=== PATIENT | female | born 1985 | race Caucasian/White ===

== ENCOUNTER 2023-08-16 18:45 | Emergency (ER) | payer SELFPAY ==
[2023-08-16 18:52] VITALS: BP 118/86; PULSE 84; RESP 20; TEMP 37.3; O2SAT 99
[2023-08-16 19:04] LABS: EDUAAPPEAR Cloudy; EDUABILI Negative; EDUABLOOD 2+; EDUACOLOR1 Yellow; EDUAGLUCOSE Negative; EDUAKETONE Negative; EDUALEUKO 1+; EDUANITRATE Positive; EDUAPROTEIN 2+; EDUAUROBILI 0.2
--- NOTE | 2023-08-16 19:50 | ED.FEMALEGU ---
HPI - Female Genitourinary General Chief complaint: Urogenital-Female Stated complaint: Bladder/back pain Time Seen by Provider: 08/16/23 19:42 Source: patient and RN notes reviewed Mode of arrival: ambulatory Limitations: no limitations History of Present Illness HPI Narrative: Patient presents today with a 3 day history of suprapubic pain and right flank pain that started today. She also has some mild nausea. Denies vomiting, fever, or any additional urinary symptoms. Currently rates her pain 9/10 and has tried no [id number] treatment prior to arrival. Related Data Allergies Allergy/AdvReac Type Severity Reaction Status Date / Time Penicillins Allergy Intermediate Rash Verified 08/16/23 18:55 cephalexin Allergy Unknown RASH, Verified 08/16/23 18:55 RESPIR. DISTRESS Review of Systems Review of Systems: CONSTITUTIONAL: Denies body aches, fever, chills, or sweats. EYES: Denies visual changes, redness, or discharge. ENT: Denies rhinorrhea, congestion, sore throat, or otalgia. CARDIOVASCULAR: Denies chest pain, palpitations, or edema. RESPIRATORY: Denies cough or dyspnea. GASTROINTESTINAL: Denies vomiting, or diarrhea.+ abdominal pain, nausea, flank pain GENITOURINARY: Denies dysuria or hematuria. SKIN: Denies rash, itching, or wounds. MUSCULOSKELETAL: Denies back pain, joint pain, or myalgia. NEUROLOGIC: Denies headache, numbness, tingling, or weakness. PSYCH: Denies depression or anxiety. PMFSH Comments At time of signature, I have reviewed and agree with nursing past medical, surgical, social and family history unless otherwise noted. Please see nursing chart for further information. There is no relevant family history pertinent to the presenting complaint Exam Narrative: GENERAL: Mildly ill-appearing, well-nourished, and in moderate pain distress. HEAD: Normocephalic, atraumatic. EYES: EOMI. No redness or drainage. Conjunctivae normal. ENT: Mucous membranes pink and moist. NECK: Normal AROM. CHEST: No respiratory distress. Clear to auscultation. HEART: Regular rate and rhythm. No murmur appreciated. Normal peripheral pulses. ABDOMEN: Soft, nondistended, normal active bowel sounds. Suprapubic tenderness, right lower quadrant tenderness. -CVAT EXTREMITIES: Normal range of motion. No edema. SKIN: Warm, dry, no rash. Capillary refill normal. Normal skin turgor. NEURO: No focal deficits. Alert and oriented x3. Gait steady. PSYCH: Normal affect. No signs of depression or anxiety. Course Course Level of Care: Express Care Visit Vital Signs Vital signs: Vital Signs Temperature 99.2 F 08/16/23 18:52 Pulse Rate 84 08/16/23 18:52 Respiratory Rate 20 08/16/23 18:52 Blood Pressure 118/86 08/16/23 18:52 Pulse Oximetry 99 08/16/23 18:52 Oxygen Delivery Room Air 08/16/23 18:52 Temperature 99.3 F 08/16/23 19:28 Pulse Rate 95 08/16/23 19:28 Respiratory Rate 16 08/16/23 19:28 Blood Pressure 114/72 08/16/23 19:28 Pulse Oximetry 100 08/16/23 19:28 Oxygen Delivery Room Air 08/16/23 19:28 Reviewed MDM - Female Genitourinary MDM Narrative Medical decision making narrative: UA is consistent with urinary tract infection. Patient's flank pain suggests pyelonephritis or ureteral stone. Recommend ER transfer for further evaluation. Patient refuses ER transfer. Will sign out AMA after benefit/risk discussion. Will treat UTI with Cipro. Patient states she will go to the ER if symptoms worsen. Differential Diagnosis Differential diagnosis: Likely urinary tract infection, vaginitis, cystitis and other (Ureteral stone, pyelonephritis) Lab Data Attestation: I reviewed the patient's lab results. Labs: Lab Results 08/16/23 Range/Units 18:56 POC Urine Color Yellow POC Urine Clarity Cloudy POC Urine pH 6.0 POC Ur Specif [place] 1.020 POC Urine Protein 2+ POC Ur Glucose (UA) Negative POC Urine Ketones Negative POC
== END 2023-08-16 20:03 | disposition left against medical advice (07) ==
PROVIDERS: Emergency Provider Nurse Practitioner
DX: N30.01 Acute cystitis with hematuria (principal); B96.20 Unspecified Escherichia coli [E. coli] as the cause of diseases classified elsewhere
CPT/HCPCS: 81003; 87077; 87086; 87186; 99203; G0463

== ENCOUNTER 2024-05-15 16:20 | Emergency (ER) | payer SELFPAY ==
--- OUTSIDE RECORDS SUMMARY | 2024-05-15 16:23 | XMS_ITS | Referral Summary ---
Author Organization [facility] Address [address] [place] [address] Care Team Providers Care Communications Tech Name Role Phone Rufus Camacho MD Primary Care Provider [phone]- [phone] Sukumar Brizuela MD Unavailable Allergies Active Allergy Reactions Criticality Noted Date Comments Cephalexin Rash,Swelling Medium 02/29/2016 Penicillins Rash,Swelling Medium 02/29/2016 Sulfa (Sulfonamide Antibiotics) Hives Medium 06/05 Medications venlafaxine XR (EFFEXOR-XR) 75 mg 24 hr capsule Take 75 mg by mouth daily Active albuterol HFA (PROVENTIL HFA,VENTOLIN HFA,PROAIR HFA) 90 mcg/actuation inhaler Inhale 2 puffs every 4 (four) hours as needed Active Adderall XR 30 mg 24 hr capsule Take 30 mg by mouth daily 2 Active cariprazine (Vraylar) 1.5 mg capsule Take 1 capsule by mouth daily Haven't taken within the last month Active HYDROcodone-randell taminophen (NORCO) 5-325 mg per tablet hydrocodone 5 mg-acetaminophen 325 mg tablet TAKE 1 TABLET BY MOUTH EVERY 6 HOURS Active norgestimate-et hinyl estradioL (ORTHO-CYCLEN) 0.25-35 mg-mcg per tablet Take 1 tablet by mouth daily 28 tablet 14 2 Active traMADoL (ULTRAM) 50 mg tablet Take 1 tablet (50 mg total) by mouth every 6 (six) hours for 8 doses 8 tablet 4 Active Active Problems Problem Noted Date Diagnosed Date Lactic acidosis 06/24/2021 Assessment & Plan (06/24/2021 1:58 AM CDT): Patient receiving fluids. Will repeat. Nicotine dependence with current use 06/24/2021 Assessment & Plan (06/24/2021 1:58 AM CDT): Continue with nicotine patch Mild malnutrition 06/24/2021 Depression 06/23/2021 Bipolar 1 disorder 06/23/2021 Assessment & Plan (06/24/2021 1:58 AM CDT): Continue Effexor Anxiety 06/23/2021 Substance abuse 06/23/2021 Assessment & Plan (06/24/2021 1:57 AM CDT): History of opiate abuse. Patient denies ever having history of heroin abuse or IV drug use. Her drug of choice were Vicodin and Percocet. Pneumonia of right lower lobe due to infectious organism 06/23/2021 Assessment & Plan (06/24/2021 2:08 AM CDT): With intraparenchymal abscess. Patient has been seen by pulmonology. Continue Vanco and ertapenem. P.r.n. pain control. Given patient's history of opioid abuse, will attempt to avoid opioids. She is currently breathing comfortably on room air. History of gestational diabetes 03/12/2012 Abscess of lower lobe of right lung with pneumon ia Immunizations Immunization Administration Dates Next Due Influenza, Split 11/07/2011 Influenza, Trivalent, Preservative Free, Intramu scular 02/05/2011 Social History Tobacco Use Types Packs/Day Years Used Date Smoking Tobacco: Every Day Cigarettes Vaping Smokeless Tobacco: Never Tobacco Cessation:Ready to Q uit: Not Asked; Counseling Given: Not Answered Alcohol Use Standard Drinks/Week Comments Not Currently 0 (1 standard drink = 0.6 oz pur e alcohol) AUDIT-C Answer Date Recorded Q1: How often do you have a drink containing alc ohol? Monthly or less 06/23/2021 Q2: How many drinks containi ng alcohol do you have on a typical day when you are drinking? 1 or 2 06/23/2021 Q3: How often do you have si x or more drinks on one occasion? Never 06/23/2021 Personal Safety Answer Date Recorded Have you ever been in or are you currently in a harmful physical or emotional relationship or is someone making you feel afraid or unsafe? 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 Gender Identity Not on file Sexual Orientation Not on file Occupation Industry Job Start Date Job End Date Not on file Not on file Not on file Not on file Last Filed Vital Signs Vital Sign Reading Time Taken Comments Blood Pressure 156/91 03/06/2023 6:53 PM INDEPENDENT CROP CONSULTANT Pulse 114 03/06/2023 6:56 PM INDEPENDENT CROP CONSULTANT Temperature 36.6 C (97.8 F) 03/06/2023 6:53 PM INDEPENDENT CROP CONSULTANT Respiratory Rate 16 03/06/2023 6:53 PM INDEPENDENT CROP CONSULTANT Oxygen Saturation 100% 03/06/2023 6:53 PM INDEPENDENT CROP CONSULTANT Inhaled Oxygen Concentration - - Weight 58.5 kg (129 lb) 03/06/2023 6:53 PM INDEPENDENT CROP CONSULTANT Height 160 cm (5' 3 ) 07/12/2021 9:57 AM CDT Body Mass Index 22.85 07/12/2021 9:57 AM CDT Plan of Treatment Not on file Procedures Procedure Name Priority Date/Time Associated Diagnosis Comments PAP AND HIGH RISK HPV, REFLEX TO GENOTYPING Routine 07/08/2021 10:48 AM CDT Screening for malignant neoplasm of the cervix from Last 3 Months or Most Recently Relevant to Health Maintenance Results * Pap and High Risk HPV, reflex to Genotyping (07/08/2021 10:48 AM CDT) Thin prep (Pap test) 07/08/2021 10:48 AM CDT 07/11/2021 10:48 AM CDT Narrative PATHOLOGY [facility] - 07/13/2021 9:59 AM CDT [facility] Department of Pathology [address] [place], [place] [id number] Final Report with Addendum Note to Patients: This report may contain a detailed description of human tissue sent by a health care provider to the laboratory for pathologic evaluation. The content of this report is essential for diagnosis and may provide important critical findings. This information may be unfamiliar to patients to review without a medical professional present. It is advised that the patient review this report in the presence of a health care provider who can answer questions and explain the details. Patient Name: ROSY EVANS Address: [address] [place] [address] Gender: F : 1985 (Age: 35) Service: Laboratory Location: Lab [facility] #: [id number] Patient Type: Ref Lab Taken: 07/08/2021 Received: 07/11/2021 Accessioned:: 07/12/2021 Reported: 07/13/2021 Physician(s): MD Hien Sewell MD Diagnosis: Source of Specimen: SCREENING THIN PREP IMAGED PAP w/ HPV Specimen Adequacy: - Specimen satisfactory for interpretation; endocervical/transformation zone component absent or insufficient General Category: - Negative for intraepithelial lesion or malignancy NADYA Galvan(ASCP) Report Electronically Reviewed and Signed Out By ESTEFANIA GalvanASCP) 07/13/2021 09:59:58 Addenda: HPV Test Interpretation NEGATIVE for types 16, 18, 31, 33, 35, 39, 45, 51, 52, 56, 58, 59, 66 and 68. Test performed utilizing Gen-Probe Aptima assay. NADYA Mcmahon(ASCP) Report Electronically Reviewed and Signed Out By ESTEFANIA McmahonASCP) 07/13/2021 10:10:38 Specimen(s) Received: A: SCREENING THIN PREP IMAGED PAP w/ HPV Clinical History: The Pap test is a screening test used to aid in the detection of cervical cancer and its precursors. It should not be the sole means by which malignant and premalignant lesions are diagnosed. Both false negative and false positive results may occur. It also has poor sensitivity for the detection of endometrial lesions and should not be used to evaluate suspected endometrial abnormalities. For these reasons it is most important to obtain Pap tests at regular intervals. The performance characteristics of some immunohistochemical stains, fluorescence in-situ hybridization tests and immunophenotyping by flow cytometry cited in this report (if any) were determined by the Surgical Pathology Department at [facility] as part of an ongoing quality control representative program and in compliance with federally mandated regulations drawn from the Clinical Laboratory Improvement Act of 1988 (CLIA '88). Some of these tests rely on the use of analyte specific reagents and are subject to specific labeling requirements by the US Food and Drug Administration. Such diagnostic tests may only be performed in a facility that is certified by the Department of Health and Human Services as a high complexity laboratory under CLIA '88. The FDA has determined that such clearance or approval is not necessary. This test is used for clinical purposes. It should not be regarded as investigational or for research. Nevertheless, federal rules concerning the medical use of analyte specific reagents require that the following disclaimer be attached to the report: This test was developed and its performance characteristics determined by the Surgical Pathology Department [facility]. It has not been cleared or approved by the U. S. Food and Drug Administration. Hien Kurtz MD LAB CYTOLOGY ORDERABL ES Final Result Performing Organization Address City/State/[facility] Co de Phone Number PATHOLOGY [address] [place] [address] from Last 3 Months or Most Recently Relevant to Health Maintenance Insurance ACCESS CHOICE ANTHEM ACCESS CHOICE Advance Directives For more information, please contact: [phone] * Full Code (Latest Code Status on File) Date Activated Date Inactivated Comments 06/23/2021 3:30 PM 06/25/2021 9:28 PM Care Teams Communications Tech Relationship Specialty Start Date End Date Rufus Camacho MD [facility] [place] [address] PCP - General 06/23/21 Sukumar Brizuela MD [facility] [place] [address] Consulting Physician Pulmonary Disease 06/25/21
--- OUTSIDE RECORDS SUMMARY | 2024-05-15 16:23 | XMS_ITS | Clinical Summary ---
Author Organization [facility] Address [address] [place] [address] Care Team Providers Care Galley Hand Name Role Phone Rufus Camacho MD Primary Care Provider +1- [phone] Sukumar Brizuela MD Unavailable Allergies Active Allergy [...] Influenza, Trivalent, Preservative Free, Intramu scular 02/05/2011 Surgical History Surgery Date Site/Laterality Comments INGUINAL HERNIA REPAIR Inguinal Hernia Repair - at 10 yrs old (Added by TW Conv) SECTION 02/06/2012 - 02/04/2013 DILATION AND CURETTAGE OF UTERUS 02/05/2007 - 02/05/2008 Partial molar DILATION AND CURETTAGE OF UTERUS Missed Medical History Medical History Date Comments Hx Other Medical 2007 ; Comm ents: molar ----partial--followed betas to zero. D&C; Outcome: Unknown sex Hx Other Medical 2009 ; Comm ents: medical management with cytotect.; Outcome: 8 week Unknown sex Asthma Recurrent loss Abnormal Pap smear of cervix 2012 LSI L. ECC - negative. Family History Medical History Relation Name Comments Melanoma Cousin Diabetes type II Father Diabetes type II Maternal Grandfather Mosca's disease Maternal Grandmother Diabetes type II Maternal Grandmother Heart disease Maternal Grandmother Rheum arthritis Maternal Grandmother Thyroid disease Other 1 Thyroid Diso rder - grandmother and younger sister (Added by TW Conv) Diabetes type II Other 2 Type 2 Diab etes Mellitus - grandparents on both sides of her family (Added by TW Conv) Hypertension Other 3 Hypertension - (Added by TW Conv) Diabetes type II Paternal Grandfather Diabetes type II Paternal Grandmother Relation Name Status Comments Cousin Father Maternal Grandfather Maternal Grandmother Other 1 Other 2 Other 3 Paternal Grandfather Paternal Grandmother Social History Tobacco Use Types Packs/Day Years [...] on file Legal Sex Female 11:54 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 Arrest of 1st stage of labor. 1' LTCS. 3 more 1st TM miscarriages after delivery, one with D&C. Last Filed Vital Signs Vital Sign Reading Time Taken Comments Blood Pressure 156/91 03/06/2023 6:53 PM MEDIA/INSTRUCTIONAL DESIGNER Pulse 114 03/06/2023 6:56 PM MEDIA/INSTRUCTIONAL DESIGNER Temperature 36.6 C (97.8 F) 03/06/2023 6:53 PM MEDIA/INSTRUCTIONAL DESIGNER Respiratory Rate 16 03/06/2023 6:53 PM MEDIA/INSTRUCTIONAL DESIGNER Oxygen Saturation 100% 03/06/2023 6:53 PM MEDIA/INSTRUCTIONAL DESIGNER Inhaled Oxygen Concentration - - Weight 58.5 kg (129 lb) 03/06/2023 6:53 PM MEDIA/INSTRUCTIONAL DESIGNER Height 160 cm (5' 3 ) 07/12/2021 9:57 AM CDT Body Mass Index 22.85 07/12/2021 9:57 AM CDT Plan of Treatment Health Maintenance Due Date Last Done Comments Depression Screening 1985 Hepatitis C Screening 1985 DTaP/Tdap/Td Vaccine (1 - Tdap) 1996 Varicella Vaccines (1 of 2 - 13+ 2-dose series) 1998 Hepatitis B Screening 12/14/2003 Pneumococcal vaccine <65 (1 of 2 - PCV) 2004 Cervical Cancer Screening 07/08/2022 07/08/2021 Regular Well Visit/Exam 18-64 07/08/2022 07/08/2021 Covid-19 Vaccine (3 - 2023-2 5 season) 2023 11/03/2020, 10/05/2020 Influenza Vaccine (Season Ended) 2024 12/03/2014, 11/07/2011, 02/05/2011 HPV Vaccines Aged Out No longer eligi ble based on patient's age to complete this topic Procedures Procedure Name Priority Date/Time Associated Diagnosis [...] 9:59 AM CDT [facility] Department of Pathology [address] [place], [place] [id number] Final Report with Addendum Note to Patients: [...] the details. Patient Name: ROSY EVANS Address: [address] [place] [address] Gender: F : 1985 (Age: 35) Service: Laboratory Location: Lab [facility] #: [id number] Patient Type: Ref Lab Taken: 07/08/2021 Received: 07/11/2021 Accessioned:: 07/12/2021 Reported: 07/13/2021 Physician(s): MD Hine Sewell MD Diagnosis: Source of Specimen: SCREENING THIN PREP IMAGED PAP w/ HPV Specimen Adequacy: - Specimen satisfactory for interpretation; endocervical/transformation zone component absent or insufficient General Category: - Negative for intraepithelial lesion or malignancy NADYA Galvan(ASCP) Report Electronically Reviewed and Signed Out By NADYA Galvan(ASCP) 07/13/2021 09:59:58 Addenda: HPV Test Interpretation NEGATIVE [...] determined by the Surgical Pathology Department at [facility] as part of an ongoing quality assurance technician program and in compliance with federally mandated [...] characteristics determined by the Surgical Pathology Department [facility]. It has not been cleared or approved by the U. S. Food and Drug Administration. Hien Kurtz MD LAB CYTOLOGY ORDERABL ES Final Result PATHOLOGY [address] [place] [address] from Last 3 Months or Most Recently Relevant to Health Maintenance Insurance [facility] ACCESS CHOICE ANTHEM ACCESS CHOICE Advance Directives For more information, please contact: [phone] * Full Code (Latest Code Status on File) Date Activated Date Inactivated Comments 06/23/2021 3:30 PM 06/25/2021 9:28 PM Care Teams Galley Hand Relationship Specialty Start Date End Date Rufus Camacho MD [address] [place] [address] [place] [address] PCP - General 06/23/21 Sukumar Brizuela MD [address] [place] [address] [place] [address] Consulting Physician Pulmonary Disease 06/25/21
[2024-05-15 16:38] VITALS: BP 114/74; PULSE 86; RESP 20; TEMP 36.9; O2SAT 98
--- NOTE | 2024-05-15 17:07 | ED.URI ---
HPI - URI/Sore Throat General Chief Complaint: Upper Respiratory Infection Stated Complaint: ear and throat pain Time Seen by Provider: 05/15/24 16:48 Source: patient, RN notes reviewed and old records reviewed Mode of arrival: ambulatory Limitations: no limitations History of Present Illness HPI Narrative: 38 year old female who presents to [facility] care with complaints of sinus congestion and drainage for one week duration and yesterday started with right ear pain and some dizziness. Patient reports no drainage from her right ear or any tinnitius or decreased hearing. Patient reports that she has been taking Claritin and Benadryl for her symptoms. Patient reports no known fevers, chills or sweats, denies any body aches. MD elicited complaint: rhinorrhea, nasal congestion and other (ear pain) Onset (ago): week(s) (one week of sinus congestion and drainage 2 days of right ear pain and some dizziness) Pain scale (0-10): 5 Description of mucous: clear Able to tolerate fluids by mouth: Yes Treatments prior to arrival: other (Claritin and Benadryl) Related Data Allergies Allergy/AdvReac Type Severity Reaction Status Date / Time Penicillins Allergy Intermediate Rash Verified 05/15/24 16:49 cephalexin Allergy Unknown RASH, Verified 05/15/24 16:49 RESPIR. DISTRESS Review of Systems Review of Systems: CONSTITUTIONAL: Denies malaise, chills, sweats, or fever. EYES: Denies visual changes, redness, or discharge. ENT: Reports rhinorrhea, congestion, sinus pain, right otalgia and no sore throat. CARDIOVASCULAR: Denies chest pain, palpitations, or edema. RESPIRATORY: Reports no cough.? Denies dyspnea. GASTROINTESTINAL: Denies abdominal pain, nausea, vomiting, diarrhea SKIN: Denies rash or itching. MUSCULOSKELETAL: Denies myalgia. NEUROLOGIC: Denies headache.states some intermittent dizziness All systems reviewed & are unremarkable except as noted in HPI and below PMFSH Past Medical History Medical History (Updated 05/16/24 @ 14:49 by Dena Sanchez NP) Gestational diabetes Right hand fracture Wrist fracture, right Interstitial cystitis Surgical History Surgical History (Updated 05/16/24 @ 14:46 by Dena Sanchez NP) H/O dilation and curettage x2 H/O hernia repair Previous section Social History Social History (Updated 05/16/24 @ 14:47 by Dena Sanchez NP) Smoking packs per day: 0.5 Smoking cigarettes per day: 10.0 Smoking status: Current every day smoker Tobacco type: cigarettes Alcohol intake: current Alcohol use details: social Substance use type: does not use Living arrangements: with family Gender identity (if verbalized by the patient): Female Comments At time of signature, agree with nursing past medical, surgical, social and family history. There is no relevant family history pertinent to the presenting complaint Exam Narrative: GENERAL: Well-appearing, well-nourished, and in no acute distress. HEAD: Normocephalic EYES: PERRLA, conjunctivae clear ENT: Nares clear, turbinates edematous and erythematous, clear discharge. Mucous membranes moist.Right TM red and bulging, Left TM pearly roy with dull light reflex; no tragal tenderness. Oropharynx erythematous without lesions. Tonsils not enlarged and without exudate, no drooling, no hoarseness, no trismus, uvula midline.post nasal drainage NECK: Supple. No lymphadenopathy CHEST: Clear to auscultation, breath sounds equal. No wheezing, rhonchi, rales, or stridor. No respiratory distress, speaks in full sentences.no cough noted SAO2 98% on room air HEART: Regular rate and rhythm. No murmur heard. SKIN: Warm, dry, no rash. NEURO: Alert and oriented x3. PSYCH: Normal mood and affect Course Course Emergency Course: Patient is aware of diagnosis, understands and agrees to treatment plan.? Anticipatory guidance given.? Patient agrees to follow-up as directed and is aware of reasons to seek care at the emergency department. Portions of this record may have been created with voice recognition software Level of Care: Express Care Visit Vital Signs Vital signs: Vital Signs Temperature 36.9 C 05/15/24 16:38 Pulse Rate 86 05/15/24 16:38 Respiratory Rate 20 05/15/24 16:38 Blood Pressure 114/74 05/15/24 16:38 Pulse Oximetry 98 05/15/24 16:38 Oxygen Delivery Room Air 05/15/24 16:38 Temperature 36.9 C 05/15/24 16:38 Pulse Rate 86 05/15/24 16:38 Respiratory Rate 20 05/15/24 16:38 Blood Pressure 114/74 04/10/25 16:38 Pulse Oximetry 98 05/15/24 16:38 Oxygen Delivery Room Air 05/15/24 16:38 Reviewed MDM - URI/Sore Throat MDM Narrative Medical decision making narrative: Differential diagnosis considered: Dawson virus, strep pharyngitis, allergic rhinitis, upper respiratory tract infection, sinusitis, rhinosinusitis, nasopharyngitis. viral pharyngitis, otitis media, otitis externa, pneumonia, bronchitis, viral cough syndrome, viral syndrome, and influenza.? Exam findings show no acute concerns or changes; patient is non-toxic appearing and is in no distress.? Patient is appropriate for outpatient treatment and follow-up. Differential Diagnosis Differential diagnosis: Likely upper respiratory infection, otitis media, sinusitis, viral infection and other (rhinitis) Lab Data Attestation: I reviewed the patient's lab results. Critical Care Time Critical Care Time Critical Care Time: No Discharge Plan Discharge Clinical Impression: Otitis media Qualifiers: Otitis media type: serous Chronicity: acute Laterality: right Recurrence: non-recurrent Qualified Code(s): H65.01 - Acute serous otitis media, right ear Upper respiratory infection Qualifiers: URI type: unspecified URI Qualified Code(s): J06.9 - Acute upper respiratory infection, unspecified Patient Disposition: Home Condition: Stable Instructions: Antibiotic Form, Pharyngitis (ED), Ear Infection (GEN) Additional Instructions: Increase fluids especially juices and water Tvof-hcy-ynimcya cough and cold medicine of your choice for your symptoms Zyrtec Claritin or Josefa daily may include plain Sudafed daily Tylenol or ibuprofen for any fever pain heat to the face 20-30 minutes 4-6 times a day for pain Salt water gargles, throat lozenges or throat sprays as desired Antibiotic as directed--finished the medication If your symptoms persist, change or worsen significantly before you can contact your personal physician then please, without delay, go to the emergency department for further evaluation. Follow-up with PCP in 7-10 days or sooner if needed Patient Language: Setswana Prescriptions: New cefdinir 300 mg capsule 300 mg PO Q12H Qty: 14 0RF Follow-up/Referrals: UNKNOWN,DOCTOR [Primary Care Provider] - Time of Disposition: 17:15 Quality Janell Coma Scale Eyes: Open Verbal: Oriented and Alert Motor: Follows Commands Janell Coma Total Score: 15
== END 2024-05-15 17:22 | disposition home or self-care (01) ==
PROVIDERS: Emergency Provider Registered Nurse
DX: H65.01 Acute serous otitis media, right ear (principal); J06.9 Acute upper respiratory infection, unspecified; F17.210 Nicotine dependence, cigarettes, uncomplicated; N30.10 Interstitial cystitis (chronic) without hematuria
CPT/HCPCS: 99213; G0463